=== PATIENT | male | born 1955 | race Caucasian/White ===

== ENCOUNTER 2017-05-20 20:19 | Inpatient (IN) | payer BC, OTHER ==
[~2017-05-20 20:19] MED LIST: ISOVUE-370 76%-LOCM 1 ML ONE
--- NOTE | 2017-05-20 20:58 | RAD ---
PA AND LATERAL OF THE CHEST: 05/20/17 INDICATION: High blood pressure. COMPARISON: Prior exam dated 04/11/15. FINDINGS: No acute cardiopulmonary abnormality. Vascular calcification of the aortic arch is stable. Postsurgic al change of the right clavicle is stable. Healed posttraumatic deformity involving the right posteri or chest wall is stable. IMPRESSION: No acute cardiopulmonary abnormality. POS: [facility]
[2017-05-20 21:41] LABS: #Eosinphils 0.2 thou/uL (0.0-0.7); #Lymphocytes 1.7 thou/uL (1.20-3.40); #Monocytes 0.6 thou/uL (0.11-0.59); #Neutrophils 3.9 thou/uL (1.40-6.50); %Basophils 0.5 % (0.0-1.0); %Eosinophils 2.4 % (0.0-10.0); %Monocytes 9.2 % (0.0-10.0); Hemoglobin 13.3 g/dL (14.0-18.0); Mean Corpuscular HGB CONC 34.2 g/dL (32.0-36.0); Mean Corpuscular Hemoglobin 32.3 pg (27.0-31.0); Mean Corpuscular Volume 94.6 fl (80.0-94.0); Mean Platelet Volume 7.7 fL (7.4-10.4); Platelet Count 207 thou/uL (130-400); RBC Distribution Width 13.7 % (11.5-14.5); Red Blood Cell (RBC) Count 4.12 mill/uL (4.70-6.10); White Blood Cell (WBC) Count 6.5 thou/uL (4.8-10.8)
[2017-05-20 21:46] LABS: Prothrombin Time 13.3 SEC (12.0-14.7)
[2017-05-20 21:48] LABS: D-Dimer Test 0.5 *mcg/mL (0.27-0.43)
[2017-05-20] MEDS ORDERED: Nitroglycerin 2% Ointment 1 INCH/1 GM Packet ONE (21:49)
[2017-05-20 22:02] LABS: ALT (SGPT) 20 U/L (8-55); AST (SGOT) 28 U/L (5-34); Albumin 4.5 g/dL (3.4-4.8); Alkaline Phosphatase 117 U/L (40-150); Anion Gap 15 mmol/L (10-20); BUN (Urea Nitrogen) 19 mg/dL (8.4-25.7); Bilirubin, Total 0.4 mg/dL (0.2-1.2); Calc. Creatinine Clearance 0 mL/min (70-130); Carbon Dioxide 27 mmol/L (23-31); Chloride 97 mmol/L (98-107); Estimated GFR-MDRD 75; Globulin 3.5 g/dL (2.4-3.5); Glucose 100 mg/dL (80-115); Lipase 16 U/L (8-78); Magnesium 2.3 mg/dL (1.6-2.6); Potassium 3.8 mmol/L (3.5-5.1); Sodium 135 mmol/L (136-145)
[2017-05-20 22:04] LABS: CKMB 2.4 ng/mL (0-6.6); Troponin I 0.024 ng/mL (< 0.028)
[2017-05-20] MEDS ORDERED: Furosemide 40 MG/4 ML VIAL ONE (22:39)
--- NOTE | 2017-05-20 22:42 | CT ---
CTA OF THE THORAX UTILIZING IV CONTRAST AND 3D REFORMATTED IMAGING 05/20/17 INDICATION: 62-year-old male with high blood pressure, shortness of breath. Concern for PE. COMPARISON: Prior exam dated 11/10/15. FINDINGS: No central or segmental pulmonary embolus is present. There are coronary artery and thoracic aorta ca lcifications. There is stable emphysema. There are a few scattered calcified granuloma. There are chon cified granuloma within the liver and spleen. No acute osseous abnormality is evident. There is multi ple healed rib deformities involving the posterior right chest wall. There is postsurgical change of a right clavicle open reduction internal fixation. IMPRESSION: 1. No central or segmental pulmonary embolus demonstrated. 2. Scattered emphysema. 3. Findings of prior granulomatous disease. 4. Posttraumatic change of the right posterior chest wall and right clavicle. POS: [facility]
[2017-05-20 22:45] LABS: Bilirubin Negative (Negative); Blood, Urine Negative (Negative); Clarity CLEAR (Clear); Glucose, Urine (Dipstick) Negative (Negative); Leukocyte Negative (Negative); Nitrite Negative (Negative); Protein, Urine (Dipstick) Negative (Neg-Trace); Urobilinogen 0.2 mg/dL (0.2-1.0); pH, Urine 6.5 (5.0-9.0)
[2017-05-21 02:52] VITALS: BMI 26.7
[2017-05-21] MEDS ORDERED: cloNIDine 0.1 MG TAB PO SCH (03:15)
[2017-05-21 05:16] LABS: Troponin I 0.029 ng/mL (< 0.028)
[2017-05-21] MEDS ORDERED: cloNIDine 0.1 MG TAB PO PRN (07:15)
[2017-05-21] MEDS ORDERED: Furosemide 40 MG/4 ML VIAL SLOW IVP SCH (09:00)
[2017-05-21] MEDS ORDERED: Nitroglycerin 2% Ointment 1 INCH/1 GM Packet TOP SCH (09:00)
--- NOTE | 2017-05-21 10:33 | HP ---
CHIEF COMPLAINT: Shortness of breath and elevated blood pressure. HISTORY OF PRESENT ILLNESS: This is a pleasant 52-year-old gentleman with a history of multiple medi chon problems to include COPD, congestive heart failure and hypertension. He states he was visiting his at [facility] yesterday as she is in the hospital for rehab after s he just broke her hip and all of a sudden he had more shortness of breath than usual and he felt like his blood pressure was high. Apparently, they checked his blood pressure there and it was over 190 systolic. For this reason, he came over to the ER and was found to be in congestive heart failure, t hus admitted to the hospital for further evaluation and treatment. I talked to the on the phone and she states over the last several weeks he has been short of katlin ath. He has not wanted to come in to be seen according to her. After talking to the patient, he sta sera he has been more short of breath over the last several days with minimal exertion. He denies any orthopnea, palpitations or chest pain. He also states that his legs have poor circulation and he gi ves out very easy after walking. PAST MEDICAL HISTORY: 1. Chronic obstructive pulmonary disease. 2. Asthma. 3. Hyperlipidemia. 4. Arthritis. 5. He does have a history also of cardiac catheterization in 2016, he was found to have mild coronar y artery disease, at that time his EF was 30-35%. PAST SURGICAL HISTORY: He has had a fractured collarbone in the past. ALLERGIES: None. MEDICATIONS: 1. Coreg 25 mg b.i.d. 2. Simvastatin 20 mg every day. 3. Meloxicam 15 mg b.i.d. 4. Entresto 92/103 b.i.d. 5. Promethazine p.r.n. 6. Hydrocodone p.r.n. 7. Flexeril 10 mg t.i.d. SOCIAL HISTORY: Smokes 2 packs a day and has done so for many years. He drinks 5 beers at least a n ight. FAMILY HISTORY: Noncontributory. REVIEW OF SYSTEMS: GENERAL: Admits to weakness, fatigue, no fever or chills. HEENT: No diplopia or amaurosis fugax, tinnitus, sore throat or hoarseness. CARDIOVASCULAR: No ches t, arm or back pain. PULMONARY: See history of present illness. GASTROINTESTINAL: No GI bleed, constipation, diarrhea. GENITOURINARY: No dysuria, nocturia, oliguria, polyuria. ENDOCRINE: No polyphagia, polydipsia or heat or cold intolerance. MUSCULOSKELETAL: Admits to arthralgias. No lupus or myopathy. NEUROLOGIC: No history of CVA or seizure. All systems are negative. PHYSICAL EXAMINATION: GENERAL APPEARANCE: Pleasant gentleman who appears to be in no acute distress. He is on oxygen. VITAL SIGNS: Blood pressure 160/90, pulse 102. He is afebrile. NECK: Supple with no increased JVP or carotid bruit. Carotid had good upstroke with no thyromegaly. COR: Regular rate and rhythm. CHEST: Bibasilar crackles. ABDOMEN: Soft, nontender with normoactive bowel sounds. No bruit or organomegaly. EXTREMITIES: No edema or cyanosis. He had palpable pedal pulses. SKIN: There is no evidence of ulcers lesion or rash. NEUROLOGIC: He is awake, alert, and oriented to person, place, and time. LABORATORY DATA: Sodium 135. BNP 1900. Cardiac enzymes normal. His H&H is 13.3 and 38.9. His jose telet count is 207. Chest x-ray showed no acute cardiopulmonary abnormality. ASSESSMENT: 1. Symptoms of congestive heart failure. 2. History of congestive heart failure. 3. History of mild coronary disease. 4. Hypertension. 5. Hyperlipidemia. 6. Alcohol abuse. 7. Tobacco abuse. PLAN: 1. The patient will be admitted where IV Lasix will be continued. 2. We will resume his home medications. 3. We will check lab in the morning. 4. Echocardiogram has already been ordered and Cardiology has been asked to see the patient in consu ltation as well. The patient verbalized understanding. All questions answered to his satisfaction.
[2017-05-21] MEDS ORDERED: Sacubitril 49 MG/Valsartan 51 MG TABLET PO SCH ×3 (13:15→21:00)
[2017-05-21] MEDS ORDERED: Carvedilol 25 MG TAB PO SCH ×3 (13:15→21:00)
--- NOTE | 2017-05-21 14:58 | CON ---
DATE OF CONSULTATION: 05/21/2017 HISTORY OF PRESENT ILLNESS: The patient is a 62-year-old gentleman with a history of nonischemic cardiomyopathy, who presents with increasing dyspnea. The patient was seen in 10/2015 and he was found to have an ejection fraction of only 20% with global hypokinesis. The patient subsequently underwent a cardiac catheterization and found to have mild coronary artery disease with a severe decrease in left systolic function. The patient was highly advised to discontinue smoking and the use of alcohol. The patient has been treated with Entresto. He presented with weakness and increasing dyspnea. The patient has been out of his Entresto. The patient denied having any chest discomfort. PAST MEDICAL HISTORY: 1. Cardiomyopathy. 2. Coronary artery disease. 3. Chronic obstructive pulmonary disease. 4. Hypertension. 5. Dyslipidemia. PAST SURGICAL HISTORY: Collarbone surgery. ALLERGIES: None. MEDICATION ON ADMISSION: Coreg 25 b.i.d., simvastatin 20 daily, Entresto 98/ 102 b.i.d. and Flexeril 10 t.i.d. SOCIAL HISTORY: The patient continues to smoke 2 packs per day. The patient consumes excessive amounts of alcohol. FAMILY HISTORY: No strong family history of heart disease. REVIEW OF SYSTEMS: Ten-point system otherwise unremarkable. PHYSICAL EXAMINATION: GENERAL: This is a well-developed gentleman in mild distress. VITAL SIGNS: Blood pressure 169/103 with a heart rate of 110. NECK: Showed no jugular venous distention. LUNGS: Coarse breath sounds bilateral. HEART: Regular rate and rhythm. Normal S1 and S2. No murmurs. ABDOMEN: Not distended. EXTREMITIES: Showed very severe varicose veins bilateral. VASCULAR: Radial pulses are 2+. IMAGING DATA: EKG revealed sinus tachycardia with mild voltage criteria for left hypertrophy. IMPRESSION: 1. Hypertension, poorly controlled. 2. Cardiomyopathy. 3. Mild coronary artery disease. 4. Persistent tachycardia. PLAN: This gentleman presents with mild congestive heart failure. He continues to consume excessive amounts of alcohol. His blood pressure is markedly elevated. The patient has been restarted on his Entresto. Would add spironolactone for survival in this patient with congestive heart failure. We will follow this patient with you throughout his hospitalization. ISAÍAS
[2017-05-21] MEDS: Carvedilol 25 MG TAB PO SCH (19:43)
[2017-05-21] MEDS: Atorvastatin Calcium 10 MG TAB PO SCH (19:43)
[2017-05-21] MEDS: Sacubitril 49 MG/Valsartan 51 MG TABLET PO SCH (19:44)
[2017-05-22 05:38] LABS: ALT (SGPT) 22 U/L (8-55); AST (SGOT) 25 U/L (5-34); Albumin 4.1 g/dL (3.4-4.8); Alkaline Phosphatase 84 U/L (40-150); Anion Gap 11 mmol/L (10-20); BUN (Urea Nitrogen) 22 mg/dL (8.4-25.7); Bilirubin, Total 0.5 mg/dL (0.2-1.2); Calc. Creatinine Clearance 71 mL/min (70-130); Calcium 9.6 mg/dL (7.8-10.44); Carbon Dioxide 31 mmol/L (23-31); Chloride 92 mmol/L (98-107); Estimated GFR-MDRD 62; Globulin 3.1 g/dL (2.4-3.5); Glucose 141 mg/dL (80-115); Protein, Total 7.2 g/dL (5.8-8.1); Sodium 131 mmol/L (136-145)
[2017-05-22] MEDS: Meloxicam 15 MG TAB PO SCH (08:35)
[2017-05-22] MEDS: Aspirin 325 MG TAB PO SCH (08:35)
[2017-05-22] MEDS: Carvedilol 25 MG TAB PO SCH ×2 (08:35→21:09)
[2017-05-22] MEDS: Potassium Chloride 20 MEQ TAB PO SCH (08:36)
[2017-05-22] MEDS: Sacubitril 49 MG/Valsartan 51 MG TABLET PO SCH ×2 (08:36→21:09)
[2017-05-22] MEDS: Furosemide 40 MG/4 ML VIAL SLOW IVP SCH (08:36)
[2017-05-22] MEDS ORDERED: Spironolactone 25 MG TAB PO SCH (09:45)
[2017-05-22] MEDS ORDERED: Potassium Chloride 20 MEQ TAB PO SCH (13:15)
--- NOTE | 2017-05-22 13:16 | PRG ---
DATE OF SERVICE: 05/22/2017 SUBJECTIVE: The patient had a good night. He is on oxygen. He is breathing okay. He denies any ch est, arm or back pain. He also denies any PND, orthopnea, palpitations. He did have an echocardiogr am and his EF has decreased significantly since his last hospitalization. His EF at this time is 10% -15%. PHYSICAL EXAMINATION: GENERAL: Upon evaluation, he is awake, alert, and oriented to person, place and time. VITAL SIGNS: His blood pressure is 117/60, pulse 90, respiration 16, he is afebrile. NECK: Supple with no increased JVP or carotid bruit. Carotid had good upstroke with no thyromegaly. COR: Regular rate and rhythm. CHEST: Symmetrical. Clear to auscultation and percussion in upper lobes. ABDOMEN: Soft, nontender with normoactive bowel sounds. No bruit or organomegaly. EXTREMITIES: No edema or cyanosis. He had palpable pedal pulses. SKIN: There is no evidence of ulceration, lesion, or rash. NEUROLOGIC: He is awake, alert, and oriented to person, place, and time. LABORATORY DATA: Potassium is low at 3.0. His sodium is 131. ASSESSMENT: 1. Acute congestive heart failure. 2. Cardiomyopathy. 3. Tobacco use. 4. Alcohol abuse. 5. Hypertension. 6. Hypokalemia. PLAN: 1. We will replace the patient's potassium. 2. There has been some talk about AICD. The patient wants to talk to Dr. Gill tomorrow. However, w ill leave the patient n.p.o. in preparation for AICD. The patient verbalized understanding and all q uestions answered to satisfaction. This is Taryn Celestin PA-C dictating for Dr. Billy Subramanian.
[2017-05-22 18:59] LABS: Potassium 4.1 mmol/L (3.5-5.1)
[2017-05-22] MEDS: Atorvastatin Calcium 10 MG TAB PO SCH (21:09)
[2017-05-23 05:02] LABS: #Eosinphils 0.1 thou/uL (0.0-0.7); #Lymphocytes 2.1 thou/uL (1.20-3.40); #Monocytes 0.6 thou/uL (0.11-0.59); #Neutrophils 2.3 thou/uL (1.40-6.50); %Basophils 0.2 % (0.0-1.0); %Eosinophils 2.5 % (0.0-10.0); %Lymphocytes 40.5 % (21.0-51.0); %Monocytes 11.2 % (0.0-10.0); %Neutrophils 45.7 % (42.0-75.0); Hemoglobin 14.4 g/dL (14.0-18.0); Mean Corpuscular HGB CONC 34.2 g/dL (32.0-36.0); Mean Corpuscular Hemoglobin 32.5 pg (27.0-31.0); Mean Corpuscular Volume 94.9 fl (80.0-94.0); Mean Platelet Volume 7.7 fL (7.4-10.4); Platelet Count 211 thou/uL (130-400); RBC Distribution Width 13.7 % (11.5-14.5); Red Blood Cell (RBC) Count 4.44 mill/uL (4.70-6.10); White Blood Cell (WBC) Count 5.1 thou/uL (4.8-10.8)
[2017-05-23 05:33] LABS: Anion Gap 12 mmol/L (10-20); BUN (Urea Nitrogen) 23 mg/dL (8.4-25.7); Calc. Creatinine Clearance 78 mL/min (70-130); Calcium 9.5 mg/dL (7.8-10.44); Carbon Dioxide 29 mmol/L (23-31); Chloride 95 mmol/L (98-107); Estimated GFR-MDRD 70; Glucose 95 mg/dL (80-115); Potassium 3.6 mmol/L (3.5-5.1); Sodium 132 mmol/L (136-145)
[2017-05-23] MEDS: Carvedilol 25 MG TAB PO SCH ×2 (14:37→20:29)
[2017-05-23] MEDS: Meloxicam 15 MG TAB PO SCH (14:37)
[2017-05-23] MEDS: Aspirin 325 MG TAB PO SCH (14:37)
[2017-05-23] MEDS: Furosemide 40 MG/4 ML VIAL SLOW IVP SCH (14:37)
[2017-05-23] MEDS: Sacubitril 49 MG/Valsartan 51 MG TABLET PO SCH ×2 (14:38→20:30)
[2017-05-23] MEDS: Spironolactone 25 MG TAB PO SCH (14:38)
[2017-05-23] MEDS: Potassium Chloride 20 MEQ TAB PO SCH (14:38)
[2017-05-23] MEDS ORDERED: CEFAZOLIN/Water 2 GM/20 ML SYRINGE ONE (18:31)
[2017-05-23] MEDS ORDERED: Propofol 500 MG/50 ML VIAL ONE (18:56)
[2017-05-23] MEDS ORDERED: Fentanyl 100 MCG/2 ML VIAL ONE (18:56)
[2017-05-23] MEDS ORDERED: Midazolam HCl 2 mg/2 ml Vial ONE (18:56)
[2017-05-23] MEDS ORDERED: Lidocaine 1% (PF) 30 ML VIAL ONE (18:57)
[2017-05-23] MEDS ORDERED: Promethazine HCl 25 MG/ML VIAL SLOW IVP PRN (19:48)
[2017-05-23] MEDS ORDERED: Promethazine HCl 25 MG/ML VIAL IM PRN (19:48)
[2017-05-23] MEDS ORDERED: Ondansetron HCl/PF 4 MG/2 ML Vial IVP PRN ×2 (19:48→20:39)
--- NOTE | 2017-05-23 20:28 | RAD ---
UPRIGHT PORTABLE CHEST ONE VIEW: HISTORY: A 62-year-old male with a history of postoperative defibrillator placement evaluation. COMPARISON: 05/20/2017 FINDINGS: Left ICD in place. Metal plate and screws stabilize the right clavicle. Heart size is normal. No p neumothorax, pleural effusion, or other acute process. IMPRESSION: Left implantable cardioverter-defibrillator placement. No pneumothorax, pleural effusion, or other a cute process. Stable appearing chest. POS: [facility]
[2017-05-23] MEDS: Atorvastatin Calcium 10 MG TAB PO SCH (20:29)
--- NOTE | 2017-05-23 20:36 | CON ---
DATE OF CONSULTATION: 05/23/2017 This is an electrophysiology consultation dictated for Dr. Tiago Mulligan by Jil Plasencia, nurse prac titioner. REFERRING PHYSICIAN: Vlad Mello MD REASON FOR CONSULTATION: Nonischemic cardiomyopathy and ejection fraction of 10% -15%. HISTORY OF PRESENT ILLNESS: This is a 62-year-old gentleman with a history of nonischemic cardiomyop athy with an ejection fraction of 20%, originally documented in 10/2015. He presented to the emergen cy room with increasing dyspnea as well as weakness. He had run out of his Entresto. He denies any heart racing, palpitations, or chest pain. He has not had any stroke or stroke-like symptoms. He de nies any syncopal or near syncopal episodes. In the past, he has undergone a left heart catheterizat ion and was found to have minimal coronary artery disease that has been medically managed since that time. He continues to smoke and have heavy alcohol intake. Today, he reports that he is feeling well. He has not had any recent febrile illness and other than the weakness and increasing dyspnea, has no complaints. He denies any swelling of the extremities. PAST MEDICAL HISTORY: 1. Nonischemic cardiomyopathy; EF of 20% in 10/2015, now 10%-15%. 2. Mild coronary artery disease. 3. Chronic obstructive pulmonary disease. 4. Hypertension. 5. Dyslipidemia. ALLERGIES: None. MEDICATIONS ON ADMISSION: Coreg 25 mg b.i.d., simvastatin 20 mg daily, Entresto 89/102 one tablet b. i.d., and Flexeril 10 mg t.i.d. SOCIAL HISTORY: Smokes 2 packs per day and heavy alcohol consumption on a daily basis. Negative for illicit drug use. FAMILY HISTORY: Negative for coronary artery disease, arrhythmias, or sudden cardiac . REVIEW OF SYSTEMS: A 12-point review of systems was conducted and is negative except that listed in HPI. PHYSICAL EXAMINATION: VITAL SIGNS: Temperature 98.0 degrees Fahrenheit, pulse is 105, respirations 18, oxygen saturation 9 6% on room air, blood pressure 159/86. GENERAL: This is a well-appearing, well-groomed, well-nourished gentleman in no acute dist ress. He is alert and oriented. HEENT: Normocephalic, atraumatic. His sclerae are anicteric and EOMs are intact. NECK: Supple without jugular venous distention. His thyroid is nonpalpable. LUNGS: Clear to auscultation bilaterally without wheezes, crackles, or rhonchi. CARDIOVASCULAR: Heart rate is regularly regular without murmur, rub, or gallop. His PMI is nonpalpa ble. EXTREMITIES: Warm and dry to touch without clubbing, cyanosis, or edema. ABDOMEN: Soft and nontender without palpable masses and positive bowel tones noted throughout. NEUROLOGIC: Grossly intact and exam is nonfocal. He is stable, moving about the room. He does have severe varicosities to bilateral lower extremities. DATABASE: EKG and telemetry review reveals sinus rhythm and sinus tachycardia and is suggestive for left ventricular hypertrophy. Hematology on 05/23/2017, WBC 5.1, hemoglobin 14.4, hematocrit 42.1, p latelet count 211. Chemistry on 05/23/2017, sodium 132, potassium 3.6, chloride 95, carbon dioxide 2 9, BUN 23, creatinine 1.07. Serial troponins peaked at 0.040. Echocardiogram on 05/21/2017. EF 10% -15%. Normal-sized left atrium. LV size is severely increased. Mild aortic regurgitation and moder ate mitral regurgitation. Chest x-ray on 05/20/2017, no acute cardiopulmonary abnormality. IMPRESSION: 1. Nonischemic cardiomyopathy with severely reduced left ventricular ejection fraction of 10%-15%, p reviously 20% in 10/2015 with global hypokinesis. 2. Mild coronary artery disease by left heart catheterization, medical management. 3. Tobacco habituation. Recommend cessation of tobacco. 4. Chronic systolic heart failure, slightly decompensated with mild congestive presentation. 5. Alcohol abuse, longstanding history of excessive alcohol intake. PLAN: The patient qualifies for an ICD placement given his longstanding history of nonischemic cardi omyopathy with severely reduced EF less than 30%. Cardiomyopathy and defibrillators were discussed w ith the patient and his family at length. All questions were answered. Risks of ICD placement inclu de swelling, bruising, infection, pain and perforation of heart, and/or perforation of lung requiring additional surgical repair or chest tube placement. The patient verbalizes understanding and wishes to proceed at the earliest convenience with ICD placement. The patient is n.p.o. We will schedule him for later today. We strongly encouraged the patient to stop his alcohol intake as well as cessat ion of tobacco products. Thank you for allowing us to participate in the care of this patient.
[2017-05-23] MEDS ORDERED: Mag-Al 1200 mg/1200 mg/30 ML UDCUP PO PRN (20:39)
[2017-05-23] MEDS ORDERED: Bisacodyl 5 MG TAB PO PRN (20:39)
[2017-05-23] MEDS ORDERED: traMADol HCl 50 MG TAB PO PRN (20:39)
[2017-05-23] MEDS ORDERED: Acetaminophen 325 MG TAB PO PRN (20:39)
[2017-05-23] MEDS ORDERED: Nitroglycerin 0.4 MG TAB (25 Tab Bottle) SL PRN (20:39)
[2017-05-23] MEDS ORDERED: Temazepam 15 MG CAP PO PRN (20:39)
[2017-05-23] MEDS ORDERED: diphenhydrAMINE 25 MG CAP PO PRN (20:39)
[2017-05-23] MEDS ORDERED: Bisacodyl 10 MG SUPP PR PRN (20:39)
[2017-05-23] MEDS ORDERED: Silver Sulfadiazine 1% Cream 50 GM JAR TOP PRN (20:39)
[2017-05-23] MEDS ORDERED: Acetaminophen/Codeine 30-300mg Tablet PO PRN ×2 (20:41)
[2017-05-23] MEDS: Cephalexin 250 MG CAP PO SCH (23:25)
[2017-05-24 05:31] LABS: #Eosinphils 0.2 thou/uL (0.0-0.7); #Lymphocytes 1.8 thou/uL (1.20-3.40); #Monocytes 0.7 thou/uL (0.11-0.59); #Neutrophils 3.1 thou/uL (1.40-6.50); %Basophils 0.2 % (0.0-1.0); %Eosinophils 2.6 % (0.0-10.0); %Lymphocytes 31.9 % (21.0-51.0); %Monocytes 11.8 % (0.0-10.0); %Neutrophils 53.5 % (42.0-75.0); Hemoglobin 13.8 g/dL (14.0-18.0); Mean Corpuscular HGB CONC 34.3 g/dL (32.0-36.0); Mean Corpuscular Hemoglobin 32.7 pg (27.0-31.0); Mean Corpuscular Volume 95.3 fl (80.0-94.0); Mean Platelet Volume 9.4 fL (7.4-10.4); Platelet Count 235 thou/uL (130-400); RBC Distribution Width 13.8 % (11.5-14.5); Red Blood Cell (RBC) Count 4.22 mill/uL (4.70-6.10); White Blood Cell (WBC) Count 5.7 thou/uL (4.8-10.8)
[2017-05-24 06:04] LABS: Anion Gap 12 mmol/L (10-20); BUN (Urea Nitrogen) 21 mg/dL (8.4-25.7); Calc. Creatinine Clearance 80 mL/min (70-130); Calcium 9.6 mg/dL (7.8-10.44); Carbon Dioxide 25 mmol/L (23-31); Chloride 98 mmol/L (98-107); Estimated GFR-MDRD 71; Glucose 79 mg/dL (80-115); Sodium 131 mmol/L (136-145)
[2017-05-24] MEDS: Cephalexin 250 MG CAP PO SCH ×2 (06:05→12:13)
--- NOTE | 2017-05-24 08:31 | PRG ---
DATE OF SERVICE: 05/24/2017 SUBJECTIVE: The patient had a good night. He underwent AICD placement yesterday. He tolerated the procedure well and had no complications. The patient felt like he was ready to go home pending other consultants. PHYSICAL EXAMINATION: GENERAL: He is awake, alert, and oriented to person, place and time. VITAL SIGNS: Blood pressure is 140/80, pulse 80, respirations 20, he is afebrile. NECK: Supple with no increased JVP or carotid bruit. Carotid had good upstroke, no thyromegaly. COR: Regular rate and rhythm. CHEST: Symmetrical. Clear to auscultation and percussion. ABDOMEN: Soft, nontender with normoactive bowel sounds. No bruit or organomegaly. EXTREMITIES: No edema or cyanosis. He had palpable pedal pulses. SKIN: There is no evidence of ulcer, lesion or rash. NEUROLOGIC: He is awake, alert, and oriented to person, place, and time. LABORATORY DATA: His CBC is normal. His sodium is 131. ASSESSMENT: 1. Cardiomyopathy, status post AICD. 2. Congestive heart failure. 3. Hypertension. 4. Alcohol abuse. 5. Tobacco abuse. PLAN: I discussed at length with the patient regarding the need to stop smoking and cut way back on his alcohol. The patient states he will definitely try. The patient will have an AICD teaching chandan zavaleta by Cardiology and/or staff. If he is able to go home today he will follow up with us in a week and also with Cardiology. The patient verbalized understanding and all questions answered to his satisfaction.
[2017-05-24] MEDS: Spironolactone 25 MG TAB PO SCH (10:32)
[2017-05-24] MEDS: Carvedilol 25 MG TAB PO SCH (10:33)
[2017-05-24] MEDS: Potassium Chloride 20 MEQ TAB PO SCH (10:33)
[2017-05-24] MEDS: Meloxicam 15 MG TAB PO SCH (10:33)
[2017-05-24] MEDS: Sacubitril 49 MG/Valsartan 51 MG TABLET PO SCH (10:33)
[2017-05-24] MEDS: Aspirin 325 MG TAB PO SCH (10:33)
[2017-05-24] MEDS: Furosemide 40 MG/4 ML VIAL SLOW IVP SCH (10:34)
[2017-05-24 12:08] VITALS: BP 143/88; TEMP 97.5
--- NOTE | 2017-05-25 13:45 | DIS ---
DATE OF ADMISSION: 05/21/2017 DATE OF DISCHARGE: 05/24/2017 CHIEF COMPLAINT ON ADMISSION: Shortness of breath and elevated blood pressure. History and physical have previously been dictated, so I will resume from there with hospital course. HOSPITAL COURSE: Patient was placed in a telemetry bed, where he was closely monitored and diuresed. He was found to be in heart failure and taken that day to hatchery laborer per Dr. Mulligan. There was noted t hat he had a left ventricular ejection fraction of 10%-15%. He had systolic congestive heart failure with nonischemic cardiomyopathy. Dr. Mulligan at that point placed an implantable cardioverter defibril lator/pulse generator. Right ventricle implant programming of the anti-cardio pacemaker as wel l. The patient tolerated this procedure quite well. Dr. Vlad Mello also saw the patient in consu ltation on 05/21/2017 and agreed with that treatment plan. By 05/22/2017, his blood pressure is much improved 135/100. He is noted to have severe cardiomegaly. We continued his current treatment. By 05/23/2017, he had no complaints. He felt great and blood pressure at that time was normal as was h is lab work. Dr. Gill saw the patient later that day and felt that he could be discharged home at th is point and he is to follow up with Dr. Gill in 2 weeks. We saw the patient on 05/23/2017, had a go od night. The AICD had been placed and there were no significant complications. He was encouraged t o stop smoking and to cut back or stop his alcohol completely. He agreed with stopping smoking, but was adamant that he would probably keep drinking and he was able to go home on that day. Follow up with Cardiology in 2 weeks, as he requested Dr. Subramanian in 1 week. DISCHARGE DIAGNOSES: 1. Ischemic cardiomyopathy, status post an automatic implantable cardioverter defibrillator. 2. Congestive heart failure, systolic, chronic. 3. Hypertension. 4. Alcohol abuse. 5. Tobacco abuse. 6. Chronic obstructive pulmonary disease. The time required to review the chart then examined the patient, answered all the patient's questions . They prepared the chart for discharge, write prescription for Keflex 500 q.i.d. to area counselor the pat ient and dictate for the chart as well as reconcile all his medication, came to 30 minutes and he was discharged in stable condition.
--- NOTE | 2017-05-28 20:24 | EKG ---
Test Reason : Blood Pressure : / mmHG Vent. Rate : 115 BPM Atrial Rate : 115 BPM P-R Int : 146 ms QRS Dur : 082 ms QT Int : 330 ms P-R-T Axes : 063 027 069 degrees QTc Int : 456 ms Sinus tachycardia Minimal voltage criteria for LVH, may be normal variant Borderline ECG Confirmed by MICHAEL LEIVA ([id number]), assignment editor CATRACHO MCINTOSH ([id number]) on 05/28/2017 8:23:24 PM Referred By: Confirmed By:MICHAEL LEIVA
== END 2017-05-24 13:40 | disposition home or self-care (01) | DRG 227 ==
LOC: ERS 20:19 → OBSVTOIN 05-21 01:10 → 2SW 05-21 01:10
PROVIDERS: ADMIT Specialist; ATTEND Specialist
PROC: 0JH608Z Insertion of Defibrillator Generator into Chest Subcutaneous Tissue and Fascia, Open Approach (ICD-10-PCS; principal; 2017-05-23)
PROC: 02HK3KZ Insertion of Defibrillator Lead into Right Ventricle, Percutaneous Approach (ICD-10-PCS; 2017-05-23)
DX: I11.0 Hypertensive heart disease with heart failure (principal); I42.9 Cardiomyopathy, unspecified; I50.23 Acute on chronic systolic (congestive) heart failure; F17.210 Nicotine dependence, cigarettes, uncomplicated; I25.10 Atherosclerotic heart disease of native coronary artery without angina pectoris; J44.9 Chronic obstructive pulmonary disease, unspecified; E78.5 Hyperlipidemia, unspecified; M19.91 Primary osteoarthritis, unspecified site; F10.10 Alcohol abuse, uncomplicated; E87.6 Hypokalemia; I83.93 Asymptomatic varicose veins of bilateral lower extremities; R00.0 Tachycardia, unspecified
CPT/HCPCS: 33249; 36005; 36415; 71045; 71046; 71275; 75820; 80048; 80053; 81003; 82553; 83690; 83735; 83880; 84484; 85025; 85379; 85610; 85730; 93005; 93306; 96374; 99406; A4216; C1777; C1786; J1940; J2001; J2250; J2704; J3010; J3490

== ENCOUNTER 2017-06-30 04:12 | Inpatient (IN) | payer BC, OTHER ==
[2017-06-30] MEDS ORDERED: methylPREDNISolone Sod Succ/PF 125 MG/2 ML VIAL ONE (04:35)
[2017-06-30] MEDS ORDERED: Magnesium Sulfate 2 GM/100 ML BAG ONE (04:35)
[2017-06-30 04:50] LABS: #Eosinphils 0.3 thou/uL (0.0-0.7); #Lymphocytes 2.1 thou/uL (1.20-3.40); #Monocytes 0.6 thou/uL (0.11-0.59); #Neutrophils 6.3 thou/uL (1.40-6.50); %Basophils 0.4 % (0.0-1.0); %Eosinophils 2.9 % (0.0-10.0); %Neutrophils 67.8 % (42.0-75.0); Hemoglobin 13.7 g/dL (14.0-18.0); Mean Corpuscular HGB CONC 34.3 g/dL (32.0-36.0); Mean Corpuscular Hemoglobin 32.3 pg (27.0-31.0); Mean Platelet Volume 8.1 fL (7.4-10.4); Platelet Count 182 thou/uL (130-400); RBC Distribution Width 13.9 % (11.5-14.5); Red Blood Cell (RBC) Count 4.24 mill/uL (4.70-6.10); White Blood Cell (WBC) Count 9.2 thou/uL (4.8-10.8)
[2017-06-30 05:17] LABS: CKMB 2.3 ng/mL (0-6.6); Troponin I 0.024 ng/mL (< 0.028)
[2017-06-30 05:43] LABS: ALT (SGPT) 27 U/L (8-55); AST (SGOT) 35 U/L (5-34); Albumin 4.7 g/dL (3.4-4.8); Alkaline Phosphatase 106 U/L (40-150); Anion Gap 16 mmol/L (10-20); BUN (Urea Nitrogen) 13 mg/dL (8.4-25.7); Bilirubin, Total 0.5 mg/dL (0.2-1.2); CK (CPK) 117 U/L (30-200); Calc. Creatinine Clearance 0 mL/min (70-130); Carbon Dioxide 25 mmol/L (23-31); Chloride 99 mmol/L (98-107); Estimated GFR-MDRD 73; Globulin 3.5 g/dL (2.4-3.5); Glucose 111 mg/dL (80-115); Potassium 4.1 mmol/L (3.5-5.1); Protein, Total 8.2 g/dL (5.8-8.1); Sodium 136 mmol/L (136-145)
--- NOTE | 2017-06-30 07:36 | RAD ---
ONE VIEW CHEST: COMPARISON: 05/23/17. History Dyspnea. FINDINGS: Stable left-sided transvenous defibrillator, distal tip is excluded from this exam. Normal cardiac s ilhouette. The pulmonary vessels and hilum are normal. Costophrenic angles are clear. Lungs are hy perinflated. Chronic changes, without consolidation or mass. NO pneumothorax. Stable internal fixa tion hardware along the right clavicle. IMPRESSION: 1. Atherosclerosis of the aorta. 2. Chronic changes of lung parenchyma. POS: [facility]
[2017-06-30 07:51] LABS: Troponin I 0.029 ng/mL (< 0.028)
--- NOTE | 2017-06-30 08:58 | HP ---
REASON FOR ADMISSION: Shortness of breath. HISTORY OF PRESENT ILLNESS: This is a pleasant 62-year-old gentleman with a history of multiple medi chon problems to include COPD and cardiomyopathy with a recent AICD placement a few months ago, barbara ts with shortness of breath over the last several days, but more acute onset last night at 2 in the orning. He states he had to prop himself up to breathe and could not catch his breath. He became sc ared and presented to the hospital for further evaluation and treatment. He states he is adamant that he will never smoke again! He denies any chest, arm or back pain. He a lso denies any syncopal or near syncopal episode. At this point he is being admitted for further marianne luation and treatment. PAST MEDICAL HISTORY: 1. Chronic obstructive pulmonary disease. 2. Asthma. 3. Hyperlipidemia. 4. Arthritis. PAST SURGICAL HISTORY: Had a fractured collarbone in the past. He has a recent history of AICD. ALLERGIES: None. MEDICATIONS 1. Coreg 25 mg b.i.d. 2. Meloxicam 15 mg a day. 3. Entresto 97-103 b.i.d. 4. Lasix 20 mg daily. 5. Potassium 20 mEq daily. FAMILY HISTORY: Negative for coronary artery disease. SOCIAL HISTORY: He smoked 2 packs a day and has done so for many years. He is trying to quit. He d oes drink a beer nightly. REVIEW OF SYSTEMS: GENERAL: Admits to weakness, fatigue, no fever or chills. HEENT: No diplopia, amaurosis fugax, denies sore throat or hoarseness. CARDIOVASCULAR: No chest, arm or back pain. PULMONARY: See present illness. GASTROINTESTINAL: No GI bleed, constipation, diarrhea. GENITOURINARY: No dysuria, nocturia, oliguria or polyuria. ENDOCRINE: No polyphagia, polydipsia or heat or cold intolerance. MUSCULOSKELETAL: Admits arthralgias. No lupus or myopathy. NEURO: No history of transient ischemic attack or seizures. All other systems are negative. PHYSICAL EXAMINATION: VITAL SIGNS: He is a pleasant gentleman. He is tachypneic upon evaluation. VITAL SIGNS: His blood pressure is 160/70, pulse 110. He is afebrile. NECK: Supple. No JVP or carotid bruit. Carotid had good upstroke, no thyromegaly. COR: Tachy rhythm. He does have an AICD in the left anterior chest. CHEST: A few bibasilar crackles. ABDOMEN: Soft, obese, nontender with normal bowel sounds. No bruit or organomegaly. EXTREMITIES: No edema or cyanosis. He had palpable pedal pulses. SKIN: There is no evidence of ulcers, lesion or rash. NEUROLOGIC: He is awake, alert, and oriented to person, place, and time. LABORATORY DATA: BNP is 1650. Liver enzymes normal. His CMP is normal. White blood cell 9.2. His H&H 13.7 and 39.8. Chest x-ray showed atherosclerosis of the aortic and chronic changes of the lung parenchyma. ASSESSMENT: 1. Chronic obstructive pulmonary disease exacerbation. 2. History of cardiomyopathy with AICD placement. 3. Tobacco use. 4. Hypertension. 5. Multiple medical problems. PLAN: 1. The patient will be admitted. We will continue nebulizer. 2. We will give Solu-Medrol IV b.i.d. 3. We will also give Lasix 40 mg IV daily as well as potassium. 4. Resume his home medication. 5. We will check a chest x-ray and BNP in the morning. 6. We will ask the patient's rocket scientist, Dr. Gill, to please come see the patient in consultation for a followup.
[2017-06-30 11:02] LABS: Troponin I 0.021 ng/mL (< 0.028)
[2017-06-30] MEDS ORDERED: Acetaminophen 325 MG TAB PO PRN (11:48)
[2017-06-30 12:02] VITALS: BMI 27.6
[2017-06-30] MEDS ORDERED: Sacubitril 49 MG/Valsartan 51 MG TABLET PO SCH (12:30)
[2017-06-30] MEDS ORDERED: Carvedilol 25 MG TAB PO SCH (12:30)
--- NOTE | 2017-06-30 13:45 | CON ---
DATE OF CONSULTATION: 06/30/2017 DATE OF ADMISSION: 06/30/2017 INDICATION FOR CONSULTATION: COPD exacerbation in a patient 62-year-old gentleman with a history of cardiomyopathy status post AICD implant who was admitted due to increasing shortness of breath and dy spnea. HISTORY OF PRESENT ILLNESS: This very unfortunate 62-year-old gentleman who has a history of chronic systolic heart failure due to alcoholic cardiomyopathy and mild coronary artery disease, who has und ergone a recent AICD implant, has severe COPD also was at home and developed increasing shortness of breath. He has not had any further edema; however, his BNP was elevated at 1615. He feels better af ter having some diuresis and oxygen is most likely a combination of his COPD and some CHF exacerbatio n. He recently was seen in the office just 2 days ago and was doing relatively well. He recently samson d an AICD implant and also underwent a laser atherectomy and balloon angioplasty to the left posterio r tibial artery and popliteal artery and has been doing quite well since that time. His claudication resolved and he is very happy after the procedure as he had no further left leg pain. He does have a history of hypertension and at times it fluctuates. When he was seen in the office, blood pressure was 130/80 just 2 days ago, now the blood pressure is elevated again. At this time, he is convinced that he will stop smoking, but he still continues to drink. He has been drinking at least 6-8 beers a day and smoking one and a half packs a day when he was seen in the office just 2 days ago. He has been told on multiple occasions that he needs to stop smoking altogether and also need to stop drink ing alcohol, but he refuses to do so, but at this time, he says he will stop his tobacco abuse. Othe rwise, he denied any chest pain. His EKG was unremarkable and did not show any acute changes to paramjit colton ischemia. His troponin I did elevate slightly at 0.029 and then decreased again down to 0.021, which is not indicative of myocardial infarction, but the BNP was 1650. Otherwise, laboratory data w as relatively unremarkable. His EKG showed a sinus tachycardia, but no acute changes otherwise. At this time, he is stable from a cardiac standpoint and has had some diuresis and is feeling better wit h the oxygen and diuresis. PAST MEDICAL HISTORY: Significant for CHF, chronic obstructive pulmonary disease, history of asthma, hypertension. He has had a right lung puncture. He has coronary artery disease which is mild. He has had a right clavicular fracture. He has had peripheral vascular disease, undergone recent angiop lasty and laser atherectomy. He has a history of cardiomyopathy. He has a history of AICD implant. ALLERGIES: None. MEDICATIONS: Prior to admission include simvastatin, melatonin, Meloxicam, hydrocodone/acetaminophen , Anoro Ellipta for inhalation, promethazine, Centrum vitamins, cyclobenzaprine, Nexium, Entresto, Co reg, Plavix, Lasix. SOCIAL HISTORY: He continues to smoke and drink. He is . He continues to work some. FAMILY HISTORY: Noncontributory. REVIEW OF SYSTEMS: Twelve point review of systems unremarkable except for the dyspnea. He denied an y chest pain. He had no nausea, vomiting, diarrhea. No complaints. No musculoskeletal complaint s. He has actually been walking better now without pain. PHYSICAL EXAMINATION: GENERAL: Reveals an elderly gentleman who is in no acute distress at this time, does not appear to b e short of breath and does not have chest pain. VITAL SIGNS: Blood pressure is elevated at 175/116, but he has just been given his medications appro ximately an hour ago, heart rates in the 112-120 range and shows a sinus tachycardia, respiratory rat e is 20. He is afebrile. HEENT: Shows the head to be normocephalic, atraumatic. Carotid pulses are present. I did not hear any significant bruits. LUNGS: He has decreased breath sounds throughout, but I did not hear any significant rales, rhonchi or wheezing. CARDIOVASCULAR: Reveals a regular rhythm, somewhat tachycardic. No significant murmurs, heaves, thr ills, bruits or rubs. ABDOMEN: Soft and nontender. Positive bowel sounds are present. EXTREMITIES: Show no clubbing, cyanosis, edema. Pedal pulses are present today. NEUROLOGIC: He appears to be intact. SKIN: Warm and dry. NEUROLOGIC: He appears to be fully intact. He has normal strength and normal tone. IMPRESSION: 1. Chronic obstructive pulmonary disease exacerbation for which he has significant improvement after being given oxygen and nebulizer treatments. 2. Congestive heart failure, systolic failure with some diastolic dysfunction also which is acute on chronic exacerbation. He has an AICD implant. He has had diuresis after being given IV Lasix. We will continue to monitor him, but overall appears to be improved. 3. History of tobacco abuse. He again will be encouraged to stop smoking. 4. Alcohol abuse. This is also most likely the etiology of his cardiomyopathy, but he refuses to st op drinking. 5. Peripheral vascular disease. He has had significant improvement after undergoing a laser atherec hawa and angioplasty to the left lower extremity. Pulses are present at this time. We would be more than happy to continue to follow the patient with you, but overall cardiac status appears to be rela tively stable. We would agree with the present management.
--- NOTE | 2017-06-30 14:47 | CON ---
DATE OF SERVICE: 06/30/2017 SERVICE: Pulmonary Medicine. REASON FOR CONSULTATION: [facility] patient. HISTORY OF PRESENT ILLNESS: Patient is a 62-year-old white male with past medical history significant for possible COPD, and systolic heart failure. He has been in his usual state of health until about 1-2 months ago. He started having increasing dyspnea on exertion at work. He was not having any orthopnea or paroxysmal nocturnal dyspnea. His weight is roughly stable. He has been coughing up a lot of white phlegm. There was nothing that had any color to it; other than first thing in the morning, that tends to clear as the day goes on. He denies having any fevers or chills. Otherwise, he is in his usual state of health. He presented to the emergency department because when he let a prior episode like this progressed, he had horrendous respiratory failure and required mechanical intubation. He decided to come into the hospital early this time around. He got multiple doses of Lasix and actually already feels better compared to last night. He denies any current fevers, chills, nausea, vomiting or chest discomfort. No palpitations or diarrhea. PAST MEDICAL HISTORY: 1. Chronic systolic heart failure with a 10% ejection fraction. 2. Chronic obstructive pulmonary disease, possible though I really do not see evidence of this on a CT scan. 3. Hypertension. 4. Peripheral vascular disease. 5. Dyslipidemia. 6. Osteoarthritis. PAST SURGICAL HISTORY: 1. Repair of fractured collarbone. 2. Single lead defibrillator placed. ALLERGIES: No known drug allergies. MEDICATIONS: List of his inpatient medications were reviewed. No updates were made at this time. He carries a possible diagnosis of asthma. He is not currently on any respiratory medications. FAMILY HISTORY: Noncontributory. SOCIAL HISTORY: He smokes a pack and half to 2 packs on a daily basis. He also drinks 8 beers on a nightly basis. He knows he does not have any liver disease because he never drinks any hard alcohol. He denies any illicit drugs. He has no exposure to chemicals, dust, asbestos or tuberculosis. REVIEW OF SYSTEMS: General, head, ears, eyes, nose, throat, cardiovascular, respiratory, GI, , musculoskeletal, neurologic and skin is negative except as mentioned in the HPI. PHYSICAL EXAMINATION: VITAL SIGNS: Afebrile, pulse 120, blood pressure 175/116, respirations 20, saturation 98% on 3 liters nasal cannula. GENERAL: The patient is awake, alert, in no apparent distress. LUNGS: Decent air entry bilaterally. There is no prolonged expiratory phase. With forced exhalation, there is some wheezing. That being said, there are extensive crackles throughout bilateral lung garvin. HEART: Tachycardic. Regular. ABDOMEN: Soft, nontender, nondistended. Bowel sounds are positive. MUSCULOSKELETAL: No cyanosis or clubbing. There is trace pitting in the bilateral lower extremities. NEUROLOGIC: Grossly nonfocal. LABORATORY DATA: WBC 9.2, hemoglobin 13.7, platelets 182,000. Basic metabolic profile is essentially unremarkable. AST is 35. ALT remains low. Liver function studies are otherwise unremarkable. BNP 1650. Cardiac enzymes are essentially unremarkable x3. The BNP is well above his baseline, which was established a couple of months ago 203. IMAGING: Chest x-ray demonstrates interstitial fullness. There is a blunting of the left costophrenic angle. The right costophrenic angle is cut off. Pulmonary vascular congestion is also noted. On a CTA of the chest from April of this year, there was no significant evidence of horrendous emphysematous changes. Echocardiogram from a recent hospital stay demonstrates 10-15% ejection fraction. The left ventricle size is severely increased. Moderate mitral regurgitation is also present. ASSESSMENT: 1. Acute hypoxic respiratory failure. 2. Chronic obstructive pulmonary disease with acute exacerbation, possible. 3. Obstructive sleep apnea, possible. 4. Acute on chronic systolic and valvular heart failure. PLAN: I wound recommend diuresing the patient to euvolemia. We all deescalate his steroids and discontinue his antibiotics. Steroids will be limited to a 5- day course. The patient will need to undergo evaluation in the outpatient setting in his usual state of health to determine whether or not he has true chronic obstructive lung disease. If he does, he may benefit from long-acting medications. Pulmonary Critical Care will continue to follow along while the patient remains in this location. Dr. Mosqueda will resume care on the morning as he has an established relationship with this patient. 70 minutes have been devoted to this patient in various activities. I personally reviewed all imaging studies and laboratory data noted within this document. For fifty percent of this time, I was interacting with the patient at the bedside or coordinating care with the care team. For the remainder of the time I was immediately available to the patient in the hospital unit. ISAÍAS
[2017-06-30] MEDS: Carvedilol 25 MG TAB PO SCH (21:22)
[2017-06-30] MEDS: Sacubitril 49 MG/Valsartan 51 MG TABLET PO SCH (21:22)
[2017-07-01 05:05] LABS: Prothrombin Time 13.6 SEC (12.0-14.7)
[2017-07-01] MEDS ORDERED: predniSONE 20 MG TAB PO SCH (08:00)
[2017-07-01] MEDS: Carvedilol 25 MG TAB PO SCH (08:35)
[2017-07-01] MEDS: Sacubitril 49 MG/Valsartan 51 MG TABLET PO SCH (08:35)
[2017-07-01] MEDS ORDERED: Meloxicam 15 MG TAB PO SCH (09:00)
[2017-07-01] MEDS ORDERED: Furosemide 40 MG/4 ML VIAL SLOW IVP SCH (09:00)
[2017-07-01] MEDS ORDERED: Potassium Chloride 20 MEQ TAB PO SCH (09:00)
--- NOTE | 2017-07-01 09:19 | RAD ---
ONE VIEW CHEST: COMPARISON: 06/30/17. HISTORY: Respiratory distress. Dyspnea. COPD. FINDINGS: Stable left-sided transvenous defibrillator. Stable atherosclerosis. Pulmonary vessels and hilum ar e normal. Cardiac silhouette has not changed. Stable hyperinflation with chronic changes. Old righ t rib fracture and right clavicle fracture are noted. IMPRESSION: Chronic changes. POS: OFF
--- NOTE | 2017-07-01 11:42 | PDOC.CTH ---
Cardiology Progress Note - Subjective The pt seen and examined. No overnight events. No cardiac complaints. - Objective Vital Signs Temp Pulse Resp BP Pulse Ox 07/01/17 07:55 97.6 F 102 H 16 96 07/01/17 07:00 97.6 F 97 18 131/75 100 07/01/17 06:16 102 H 16 90 L 07/01/17 04:02 95 18 125/79 97 07/01/17 00:19 95 16 95 07/01/17 00:00 92 18 129/75 99 Weight 176 lb 14.4 oz 06/30/17 07/01/17 07/02/17 06:59 06:59 06:59 Intake Total 1105 964 Output Total 1300 550 Balance -195 414 - Physical Examination General/Neuro: alert & oriented x3 Neck: no JVD present Lungs: CTA (diminished at bases) Heart: RRR Abdomen: soft Extremities: other: (No edema) - Telemetry Telemetry Rhythm: SR 90-100s - Labs Result Diagrams: 06/30/17 04:28 06/30/17 04:28 Troponin/CKMB CK-MB (CK-2) 2.3 ng/mL (0-6.6) 06/30/17 04:28 Troponin I 0.021 ng/mL (< 0.028) 06/30/17 10:19 - Assessment/Plan 1. COPD exercebation - Stable with RA 2. Acute on Chronic combined HF - Change Lasix 40mg to PO. 3. HTN - stable 4. PVD with S/p AFRO with angioplasty in 05/2017 - stable 5. Smoker - Smoking cessation education given to the pt. He stated he will quit completely 6. ETOH abuse - ETOH education given to the pt MAR reviewed * From Cardiac standpoint, the pt can be d/kim to home today. The pt will f/u with Dr Gill' office within 4 wks. Review of Systems - Review of Systems Constitutional: reports: no symptoms reported EENTM: reports: no symptoms reported Respiratory: reports: no symptoms reported Cardiac (ROS): reports: no symptoms reported ABD/GI: reports: no symptoms reported : reports: no symptoms reported
[2017-07-01 12:14] VITALS: BP 139/85; TEMP 98.5
[2017-07-02] MEDS ORDERED: Furosemide 40 MG TAB PO SCH (07:30)
== END 2017-07-01 12:30 | disposition home or self-care (01) | DRG 190 ==
LOC: ERS 04:12 → ERHOLD 06:30 → IMCU/EMU 11:39
PROVIDERS: ADMIT Specialist; ATTEND Specialist
DX: J44.1 Chronic obstructive pulmonary disease with (acute) exacerbation (principal); I50.43 Acute on chronic combined systolic (congestive) and diastolic (congestive) heart failure; J96.01 Acute respiratory failure with hypoxia; I42.9 Cardiomyopathy, unspecified; Z95.810 Presence of automatic (implantable) cardiac defibrillator; F17.210 Nicotine dependence, cigarettes, uncomplicated; M19.90 Unspecified osteoarthritis, unspecified site; E78.5 Hyperlipidemia, unspecified; I11.0 Hypertensive heart disease with heart failure; I73.9 Peripheral vascular disease, unspecified; F10.10 Alcohol abuse, uncomplicated
CPT/HCPCS: 36415; 71045; 80053; 82553; 83880; 84484; 85025; 85610; 93005; 94640; 94660; 94760; 96374; 96375; J1956; J2930; J3475; J7620

== ENCOUNTER 2017-07-21 15:07 | Outpatient (CLI) | payer BC ==
--- NOTE | 2017-07-21 15:19 | RAD ---
PA AND LATERAL CHEST: Date: 07/21/17 HISTORY: Dyspnea. COMPARISON: 12/10/15 and 07/01/17 study. FINDINGS: Heart size is within normal limits. There are atherosclerotic changes of the aorta. There are chronic -appearing lung changes seen. A pacemaker is present. No acute process is identified. IMPRESSION: No active intrathoracic disease. Chronic lung change. Stable exam. POS: [facility]
== END 2017-07-21 15:08 | disposition home or self-care (01) ==
LOC: RAD 15:07
PROVIDERS: ATTEND Internal Medicine Pulmonary Disease
DX: R06.00 Dyspnea, unspecified (principal); J98.4 Other disorders of lung
CPT/HCPCS: 71046

== ENCOUNTER 2018-09-25 13:22 | Outpatient (CLI) | payer OTHER ==
--- NOTE | 2018-09-25 13:52 | RAD ---
Exam: Chest 2 views: HISTORY: Dyspnea COMPARISON: 07/21/2017 FINDINGS: Left ICD. Metal plate and screws stabilize the right clavicle. Mild linear increased interstitial mar kings bilaterally. No confluent pneumonia. Old granulomatous disease. IMPRESSION: Stable chronic changes. No acute intrathoracic disease.
== END 2018-09-25 13:23 | disposition home or self-care (01) ==
LOC: RAD 13:22
PROVIDERS: ATTEND Internal Medicine Pulmonary Disease
DX: R06.00 Dyspnea, unspecified (principal)
CPT/HCPCS: 71046

== ENCOUNTER 2021-11-19 08:42 | Emergency (ER) | payer MEDICARE, OTHER ==
[2021-11-19] MEDS ORDERED: PROPOFOL 0 ML ONE (08:47)
[2021-11-19] MEDS ORDERED: Propofol 1,000 MG/100 ML VIAL IV ONE (08:49)
[2021-11-19] MEDS ORDERED: Propofol 1,000 MG/100 ML VIAL IV PRN (08:53)
[2021-11-19] MEDS ORDERED: Magnesium 2 GM/50 ML BAG (IN WATER) ONE (08:57)
[2021-11-19] MEDS ORDERED: methylPREDNISolone Sod Succ/PF 125 MG/2 ML VIAL ONE (08:57)
[2021-11-19 09:02] LABS: Actual Bicarbonate (HCO3a) 24.3 mEq/L (22-28); Analyzer IN Cardio ER; Base Excess (BEa) -4.8 mEq/L (-2.0 to +3.0); Calcium, Ionized (arterial) 1.12 mmol/L (1.12-1.30); Carboxyhemoglobin (COHb) 2.2 gm% (0.0-3.0); Hemoglobin (Hb) 13.1 g/dL (14.0-18.0); O2 Tension (PaO2), arterial 248.9 mmHg (> 80.0); Potassium - ABG Lab 4.22 mmol/L (3.70-5.30)
[2021-11-19 09:08] LABS: #Monocytes 0.1 thou/uL (0.11-0.59); #Neutrophils 9.2 thou/uL (1.40-6.50); %Basophils 0.1 % (0.0-1.0); %Eosinophils 0.1 % (0.0-10.0); %Lymphocytes 9.3 % (21.0-51.0); %Monocytes 0.7 % (0.0-10.0); %Neutrophils 89.7 % (42.0-75.0); Hemoglobin 12.6 g/dL (14.0-18.0); Mean Corpuscular HGB CONC 31.7 g/dL (32.0-36.0); Mean Corpuscular Hemoglobin 32.9 pg (27.0-31.0); Mean Platelet Volume 8.2 fL (7.4-10.4); Platelet Count 125 thou/uL (130-400); RBC Distribution Width 14.2 % (11.5-14.5); Red Blood Cell (RBC) Count 3.82 mill/uL (4.70-6.10); White Blood Cell (WBC) Count 10.3 thou/uL (4.8-10.8)
[2021-11-19 09:23] LABS: Bacteria/HPF None Seen HPF (None Seen); Bilirubin Negative (Negative); Blood, Urine Negative (Negative); Clarity Clear (Clear); Glucose, Urine (Dipstick) Normal (Negative); Ketone, Urine Negative (Negative); Leukocyte Negative Leu/uL (Negative); Nitrite Negative (Negative); Protein, Urine (Dipstick) 50 mg/dL (Neg-Trace); RBC/HPF 0-3 HPF (0-3); Specific Gravity, Urine 1.019 (1.002-1.036); Squamous Epithelial 0-3 HPF (0-3); Urobilinogen Normal mg/dL (Less than 2); WBC/HPF 0-3 HPF (0-3); pH, Urine 5.5 (5.0-9.0)
[2021-11-19 09:24] LABS: ALT (SGPT) 27 U/L (8-55); AST (SGOT) 30 U/L (5-34); Albumin 4.1 g/dL (3.4-4.8); Alkaline Phosphatase 101 U/L (40-110); Anion Gap 12 mmol/L (10-20); BUN (Urea Nitrogen) 28 mg/dL (8.4-25.7); Bilirubin, Total 0.6 mg/dL (0.2-1.2); CK (CPK) 112 U/L (30-200); Calc. Creatinine Clearance 0 mL/min (70-130); Calcium 8.3 mg/dL (7.8-10.44); Carbon Dioxide 24 mmol/L (23-31); Chloride 102 mmol/L (98-107); Estimated GFR 47; Globulin 3.3 g/dL (2.4-3.5); Glucose 179 mg/dL (80-115); Lipase 10 U/L (8-78); Magnesium 1.8 mg/dL (1.6-2.6); Potassium 4.4 mmol/L (3.5-5.1); Protein, Total 7.4 g/dL (5.8-8.1); Sodium 134 mmol/L (136-145)
[2021-11-19 09:26] LABS: Prothrombin Time 13.2 sec (12.0-14.7)
[2021-11-19 09:31] LABS: PTT 22.3 sec (22.9-36.1)
[2021-11-19 09:32] LABS: ALV-art Gradient 98.525 mmHg (0-20); CO2 Tension 64.3 mmHg (35.0-45.0); Puncture Site RRA
[2021-11-19 09:45] LABS: CKMB 5.6 ng/mL (0-6.6)
[2021-11-19] MEDS ORDERED: Cefepime 2 GM VIAL ONE (10:07)
[2021-11-19] MEDS ORDERED: fentaNYL Citrate/PF 2,000 MCG in Sodium Chloride 0.9% 60 ML IV SCH (10:15)
[2021-11-19] MEDS ORDERED: Fentanyl 100 MCG/2 ML VIAL ONE ×2 (11:21→12:35)
[2021-11-19] MEDS ORDERED: Iopamidol-370 76% 500 ML 1 ML ONE (12:54)
[2021-11-19 13:06] LABS: SARS-CoV-2 NAA Rapid Test Not Detected (NotDetected)
== END 2021-11-19 12:55 | disposition short-term general hospital (02) ==
LOC: ERS 08:42
DX: J96.92 Respiratory failure, unspecified with hypercapnia (principal); J96.91 Respiratory failure, unspecified with hypoxia; R77.8 Other specified abnormalities of plasma proteins; Z20.822 Contact with and (suspected) exposure to COVID-19; J44.9 Chronic obstructive pulmonary disease, unspecified; E78.00 Pure hypercholesterolemia, unspecified; F17.210 Nicotine dependence, cigarettes, uncomplicated; Z79.899 Other long term (current) drug therapy
CPT/HCPCS: 36415; 36600; 71045; 71275; 80053; 81003; 81015; 82550; 82553; 82805; 83605; 83690; 83735; 83880; 84443; 84484; 85025; 85610; 85730; 93005; 96365; 96367; 96375; 96376; J0692; J2704; J2930; J3010; J3475; J3490; J7620; Q9967; U0002

== ENCOUNTER 2023-03-31 20:52 | Emergency (ER) | payer MEDICARE ==
[2023-03-31] MEDS ORDERED: Sodium Chloride 0.9% 100 ML ONE (21:07)
[2023-03-31] MEDS ORDERED: Cefepime 2 GM VIAL ONE (21:07)
[2023-03-31] MEDS ORDERED: Ipratropium/Albuterol 3 ML NEB ONE (21:11)
[2023-03-31] MEDS ORDERED: Magnesium 2 GM/50 ML BAG (IN WATER) ONE (21:16)
[2023-03-31] MEDS ORDERED: methylPREDNISolone Sod Succ/PF 125 MG/2 ML VIAL ONE (21:17)
[2023-03-31 21:28] LABS: #Eosinphils 0.9 thou/uL (0.0-0.7); #Monocytes 0.7 thou/uL (0.11-0.59); #Neutrophils 3.6 thou/uL (1.40-6.50); %Basophils 0.3 % (0.0-1.0); %Eosinophils 12.2 % (0.0-10.0); %Lymphocytes 28.9 % (21.0-51.0); %Monocytes 9.8 % (0.0-10.0); %Neutrophils 48.5 % (42.0-75.0); Hematocrit 43.1 % (42.0-52.0); Mean Corpuscular HGB CONC 34.8 g/dL (32.0-36.0); Mean Corpuscular Hemoglobin 31.8 pg (27.0-31.0); Mean Corpuscular Volume 91.3 fl (78.0-98.0); Mean Platelet Volume 10.8 fL (7.4-10.4); Platelet Count 225 10x3/uL (130-400); RBC Distribution Width 14.9 % (11.5-14.5); Red Blood Cell (RBC) Count 4.72 mill/uL (4.70-6.10); White Blood Cell (WBC) Count 7.4 10x3/uL (4.8-10.8)
[2023-03-31 21:51] LABS: ALT (SGPT) 20 U/L (8-55); AST (SGOT) 27 U/L (5-34); Albumin 4.7 g/dL (3.4-4.8); Alkaline Phosphatase 139 U/L (40-110); Anion Gap 16 mmol/L (10-20); BUN (Urea Nitrogen) 13 mg/dL (8.4-25.7); Bilirubin, Total 0.8 mg/dL (0.2-1.2); Calc. Creatinine Clearance 0 mL/min (70-130); Calcium 10.5 mg/dL (7.8-10.44); Carbon Dioxide 26 mmol/L (23-31); Chloride 98 mmol/L (98-107); Estimated GFR 67; Globulin 3.7 g/dL (2.4-3.5); Glucose 81 mg/dL (80-115); Magnesium 1.8 mg/dL (1.6-2.6); Potassium 3.8 mmol/L (3.5-5.1); Protein, Total 8.4 g/dL (5.8-8.1); Sodium 136 mmol/L (136-145)
[2023-03-31 21:54] LABS: Troponin I 0.014 ng/mL (< 0.028)
[2023-03-31 22:21] LABS: Influenza A by NAA Not Detected (NotDetected); Influenza B by NAA Not Detected (NotDetected); SARS-CoV-2 NAA Rapid Test Not Detected (NotDetected)
== END 2023-03-31 23:02 | disposition home or self-care (01) ==
LOC: ERS 20:52
DX: J44.1 Chronic obstructive pulmonary disease with (acute) exacerbation (principal); I11.0 Hypertensive heart disease with heart failure; I50.9 Heart failure, unspecified; F17.210 Nicotine dependence, cigarettes, uncomplicated; Z95.0 Presence of cardiac pacemaker; Z79.899 Other long term (current) drug therapy
CPT/HCPCS: 0240U; 71045; 80053; 83735; 84484; 85025; 93005; 94640; 96365; 96368; 96375; J0692; J2930; J3475; J3490; J7620